=== PATIENT | male | born 1935 | race Caucasian/White ===

== ENCOUNTER → 2017-04-04 | Day surgery (SDC) | payer MEDICARE ==
[~2017-04-04] MED LIST: ASPI81 PO; ATROPINE SULFATE 1% OPHT SOLN 5 ML BTL ONE; COZA100T PO; DEXAMETHASONE SOD PHOS 4 MG/ML VIAL ONE; EPINEPHrine HCL (1:1000) 1 MG/ML VIAL ONE; FISH100020 PO; HYALURONIDASE/LIDOCAINE/BUPIVACAINE 11 ML SYR TL ONE; LACTATED RINGER'S 1000 ML INJ 1,000 ML ONE; NEOMYCIN/POLYMYXIN/DEXAMETHASONE OPTH OINT 3.5 GM TUBE ONE; PHENYLEPHRINE HCL 2.5 % OPTH SOLN 15 ML BTL ONE; PROPOFOL 200 MG/20 ML AMP IV ONE; SODIUM CHLORIDE 0.9% INJ 10 ML ONE; TAMS0.4C67 PO; TETRACAINE 0.5% OPTH SOLN 15 ML BTL ONE; TROPICAMIDE 1% OPHT SOLN 15 ML BTL ONE; VITA500T49 PO; ceFAZolin INJ 1,000 MG VIAL ONE
--- NOTE | 2017-04-10 08:05 | TN ---
cc: EMMANUEL KAMARA MD DATE OF 1935 DATE OF SURGERY 04/04/2017 PREOPERATIVE DIAGNOSIS Retinal detachment right eye. POSTOPERATIVE DIAGNOSIS Retinal detachment right eye. PROCEDURE Pars plana vitrectomy, endolaser, gas-fluid exchange, right eye. ANESTHESIA MAC. SURGEON MD Stephani COMPLICATIONS None. PROCEDURE After informed consent was obtained, the patient was given retrobulbar anesthesia. He was then brought to the operating room and prepared and draped in the usual sterile fashion. A wire lid speculum was placed in the patient's right eye. 23-gauge vitrectomy cannulas were then placed in the lower temporal, superotemporal and supranasal quadrants 3 mm posterior to the corneoscleral limbus. An infusion cannula was placed lower temporally. Core vitrectomy was then performed. There was already a posterior vitreous detachment. A vitrectomy was carried out as far as possible to the vitreous base taking care to remove vitreous from around the retinal break. A complete air-fluid exchange was then performed through a posterior retinotomy. The retina flattened nicely. Endolaser was used to treat the retinal breaks as well as the vitreous base for 360 degrees and the retinotomy. The air was then exchanged for a 16% C3F8. The three vitrectomy cannulas were then removed. Subconjunctival injections of dexamethasone and Ancef were placed. An Atropine drop, Maxitrol and a patch and shield were then applied. The patient tolerated the procedure well. There were no complications. He will [facility]. Emmanuel Kamara MD TAB/SSB /6:47 PM /7:52 AM
== END | disposition home or self-care (01) ==
LOC: ESDC 11:58
PROVIDERS: ATTEND Ophthalmology Retina Specialist
DX: H33.011 Retinal detachment with single break, right eye (principal)
CPT/HCPCS: 00145; 67108; J0171; J0690; J1100; J7120

== ENCOUNTER 2017-06-12 21:18 | Observation (INO) | payer MEDICARE ==
[~2017-06-12] VITALS: Ht 172.7 cm; Wt 84.0 kg
[~2017-06-12 21:18] MED LIST changes: -ATROPINE SULFATE 1% OPHT SOLN 5 ML BTL ONE; -DEXAMETHASONE SOD PHOS 4 MG/ML VIAL ONE; -EPINEPHrine HCL (1:1000) 1 MG/ML VIAL ONE; -HYALURONIDASE/LIDOCAINE/BUPIVACAINE 11 ML SYR TL ONE; -LACTATED RINGER'S 1000 ML INJ 1,000 ML ONE; -NEOMYCIN/POLYMYXIN/DEXAMETHASONE OPTH OINT 3.5 GM TUBE ONE; -PHENYLEPHRINE HCL 2.5 % OPTH SOLN 15 ML BTL ONE; -PROPOFOL 200 MG/20 ML AMP IV ONE; -SODIUM CHLORIDE 0.9% INJ 10 ML ONE; -TETRACAINE 0.5% OPTH SOLN 15 ML BTL ONE; -TROPICAMIDE 1% OPHT SOLN 15 ML BTL ONE; -ceFAZolin INJ 1,000 MG VIAL ONE
[2017-06-12 21:20] VITALS: BP 132/67; PULSE 78; RESP 18
[2017-06-12 21:30] VITALS: BP 130/65; PULSE 74; RESP 20; TEMP 98; O2SAT 97
[2017-06-12] MEDS ORDERED: TAMS5CAP PO (21:36)
[2017-06-12] MEDS ORDERED: LISI2.5T3 PO (21:36)
[2017-06-12] MEDS ORDERED: ASPI-516 CHEW (21:36)
[2017-06-12] MEDS ORDERED: DAILTAB38 PO (21:36)
[2017-06-12] MEDS ORDERED: ASPIRIN 81 MG CHEW TAB CHEW ONE (21:45)
--- NOTE | 2017-06-12 21:52 | PD ---
HPI Chief Complaint: Chest Pain Time Seen by Provider: 21:40 Travel History International Travel<30 days: No Contact w/Intl Traveler<30days: No History of Present Illness HPI 81-year-old male presents the emergency department while visiting his in the adjacent pod, patient developed left-sided chest pain which he described as a 9 out of 10. He states it lasted approximately 10 minutes. He also had some lightheaded sensation with it. He is now here in [facility] pod, laying comfortably in the examining room stating no chest pain currently. Patient has no previous history of cardiac issues in the past. Patient does have a history of prostate cancer with left-sided nephrectomy in the distant past. He states recent mild cold symptoms which have improved last couple of days. Patient has no abdominal pain or urinary symptoms. He has no shortness of breath currently. He is allergic to penicillin. PFSH Past Medical History Cancer: Yes (PROSTATE CA, SEED IMPLANTS WITH RADIATION) Cardiovascular Problems: No (TIA,) Diabetes: No Diminished Hearing: Yes Hepatitis: No Hiatal Hernia: No Medical other: Yes (TIA) Thyroid Disease: No Tetanus Vaccination: < 5 Years Influenza Vaccination: No Past Surgical History Genitourinary Surgery: Yes (PROSTATE SEED IMPLANTS) Pacemaker: No Other Surgery: Yes (L nephrectomy) Social History Alcohol Use: No Tobacco Use: No Substance Use: No Allergies-Medications (Allergen,Severity, Reaction): Coded Allergies: penicillin G (Unverified Allergy, Unknown, SWELLING, BREATHING PROBLEMS, ) Reported Meds & Prescriptions Reported Meds & Active Scripts Active Reported Daily Multiple Vitamin (Multiple Vitamin) 1 Tab Tab 1 Tab PO DAILY Aspirin 81 Mg Chew 81 Mg CHEW DAILY Flomax (Tamsulosin HCl) 0.4 Mg Cap 0.4 Mg PO HS Lisinopril 2.5 Mg Tab 2.5 Mg PO DAILY Review of Systems Except as stated in HPI: all other systems reviewed are Neg General / Constitutional: No: Fever Eyes: No: Visual changes HENT: No: Headaches Cardiovascular: Positive: Chest Pain or Discomfort, No: Dyspnea on exertion Respiratory: No: Shortness of Breath Gastrointestinal: No: Abdominal Pain Genitourinary: No: Dysuria Musculoskeletal: No: Pain Skin: No Rash Neurologic: No: Weakness Psychiatric: No: Depression Endocrine: No: Polydipsia Hematologic/Lymphatic: No: Easy Bruising Physical Exam Narrative GENERAL: Patient appears in no acute distress. He does admit he's been quite stressed due to his 's recent illness. SKIN: Warm and dry. HEAD: Atraumatic. Normocephalic. EYES: Pupils equal and round. No scleral icterus. No injection or drainage. ENT: No nasal bleeding or discharge. Mucous membranes pink and moist. Pharynx is clear. Airway is patent. NECK: Trachea midline. No JVD. Supple and nontender. CARDIOVASCULAR: Regular rate and rhythm. No murmurs gallops or rubs. RESPIRATORY: No accessory muscle use. Clear to auscultation. Breath sounds equal bilaterally. GASTROINTESTINAL: Abdomen soft, non-tender, nondistended. Hepatic and splenic margins not palpable. MUSCULOSKELETAL: Extremities without clubbing, cyanosis, or edema. No obvious deformities. NEUROLOGICAL: Awake and alert. No obvious cranial nerve deficits. Motor grossly within normal limits. Five out of 5 muscle strength in the arms and legs. Normal speech. PSYCHIATRIC: Appropriate mood and affect; insight and judgment normal. Data Data Last Documented VS Vital Signs Date Time Temp Pulse Resp B/P (MAP) Pulse Ox O2 Delivery O2 Flow Rate FiO2 06/12/17 21:36 Room Air 06/12/17 21:36 98 06/12/17 21:30 98.0 74 20 Orders Orders Electrocardiogram (06/12/17 21:33) Complete Blood Count With Diff (06/12/17 21:33) Basic Metabolic Panel (Bmp) (06/12/17 21:33) Ckmb (Isoenzyme) Profile (06/12/17 21:33) Troponin I (06/12/17 21:33) Chest, Single Ap (06/12/17 21:33) Ecg Monitoring (06/12/17 21:33) Oxygen Administration (06/12/17 21:33) Oximetry (06/12/17 21:33) Aspirin Chew (Aspirin Chew) (06/12/17 21:45) CKMB (06/12/17 21:35) CKMB% (06/12/17 21:35) Labs Laboratory Tests Test 06/12/17 21:35 White Blood Count 8.6 TH/MM3 Red Blood Count 5.01 MIL/MM3 Hemoglobin 14.8 GM/DL Hematocrit 42.7 % Mean Corpuscular Volume 85.3 FL Mean Corpuscular Hemoglobin 29.6 PG Mean Corpuscular Hemoglobin Concent 34.7 % Red Cell Distribution Width 14.6 % Platelet Count 319 TH/MM3 Mean Platelet Volume 7.5 FL Neutrophils (%) (Auto) 73.7 % Lymphocytes (%) (Auto) 14.1 % Monocytes (%) (Auto) 6.8 % Eosinophils (%) (Auto) 4.7 % Basophils (%) (Auto) 0.7 % Neutrophils # (Auto) 6.4 TH/MM3 Lymphocytes # (Auto) 1.2 TH/MM3 Monocytes # (Auto) 0.6 TH/MM3 Eosinophils # (Auto) 0.4 TH/MM3 Basophils # (Auto) 0.1 TH/MM3 CBC Comment DIFF FINAL Differential Comment Blood Urea Nitrogen 19 MG/DL Creatinine 2.16 MG/DL Random Glucose 96 MG/DL Calcium Level 9.8 MG/DL Sodium Level 139 MEQ/L Potassium Level 4.2 MEQ/L Chloride Level 105 MEQ/L Carbon Dioxide Level 27.1 MEQ/L Anion Gap 7 MEQ/L Estimat Glomerular Filtration Rate 29 ML/MIN Total Creatine Kinase 209 U/L Troponin I LESS THAN 0.02 NG/ML MDM Medical Decision Making Medical Screen Exam Complete: Yes Emergency Medical Condition: Yes Medical Record Reviewed: Yes Differential Diagnosis Chest pain. Cardiac syndrome. Anxiety. Narrative Course Labs ordered including CBC, CMP, cardiac panel. EKG is performed showing sinus rhythm without significant ST-T changes. Chest x-ray is ordered as well. Patient is given aspirin 324 mg by mouth. Patient is pain-free at this time. Chest x-ray is negative for acute process. CBC is unremarkable. CMP unremarkable except for creatinine of 2.16 with a BUN of 19 and a GFR of 29 , but looking back this appears to be his baseline due to his previous nephrectomy. First troponin is less than 0.02. Patient is admitted to the chest pain center. Diagnosis Primary Impression: Chest pain Qualified Codes: R07.9 - Chest pain, unspecified Admitting Information Admitting Physician Requests: Observation Condition: Stable Mariusz Amezquita Jun 12, 2017 21:52
--- NOTE | 2017-06-12 22:12 | RADRPT ---
EXAM DATE/TIME: 06/12/2017 21:46 [facility] COMPARISON: No previous studies available for comparison. INDICATIONS : Cough, chest pain. MEDICAL HISTORY : None. SURGICAL HISTORY : None. ENCOUNTER: Initial ACUITY: 1 day PAIN SCORE: 0/10 LOCATION: Bilateral chest FINDINGS: A single view of the chest demonstrates the lungs to be symmetrically aerated without evidence of mas s, infiltrate or effusion. The cardiomediastinal contours are unremarkable. Osseous structures are intact. CONCLUSION: No acute disease. Antonio Brooke MD on June 12, 2017 at 22:10 Board Certified Radiologist. This report was verified electronically.
[2017-06-12 22:29] LABS: AUTOMATED NEUTROPHIL # 6.4 TH/MM3 (1.8-7.7); BASOPHIL # 0.1 TH/MM3 (0-0.2); BASOPHIL % 0.7 % (0.0-2.0); EOSINOPHIL # 0.4 TH/MM3 (0-0.4); EOSINOPHIL % 4.7 % (0.0-4.0); HEMATOCRIT 42.7 % (39.0-51.0); HEMO FLAGS DIFF FINAL; LYMPH % 14.1 % (9.0-44.0); LYMPHOCYTE # 1.2 TH/MM3 (1.0-4.8); MEAN CELL VOLUME 85.3 FL (80.0-100.0); MEAN CORPUSCULAR HEMOGLOBIN 29.6 PG (27.0-34.0); MEAN CORPUSCULAR HGB CONC 34.7 % (32.0-36.0); MONO % 6.8 % (0.0-8.0); NEUT % 73.7 % (16.0-70.0); PLATELET COUNT 319 TH/MM3 (150-450); RED BLOOD COUNT 5.01 MIL/MM3 (4.50-5.90); RED CELL DISTRIBUTION WIDTH 14.6 % (11.6-17.2); WHITE BLOOD COUNT 8.6 TH/MM3 (4.0-11.0)
[2017-06-12 23:04] LABS: ANION GAP 7 MEQ/L (5-15); BICARBONATE 27.1 MEQ/L (21.0-32.0); BLOOD UREA NITROGEN 19 MG/DL (7-18); CHLORIDE 105 MEQ/L (98-107); GLOMERULAR FILTRATION RATE 29 ML/MIN (>89); POTASSIUM 4.2 MEQ/L (3.5-5.1); SODIUM (NA) 139 MEQ/L (136-145)
[2017-06-12 23:07] LABS: CREATINE KINASE 209 U/L (39-308)
[2017-06-12] MEDS ORDERED: NITROGLYCERIN 0.4 MG SL 25 TABS/BTL SL PRN (23:15)
[2017-06-12] MEDS ORDERED: SODIUM CHLORIDE 0.9% FLUSH 10 ML FLUSH IV FLUSH PRN (23:15)
[2017-06-12 23:19] LABS: CKMB 3.3 NG/ML (0.5-3.6)
[2017-06-12 23:50] VITALS: BP 128/62; PULSE 70; RESP 16; TEMP 98.2; O2SAT 97
[2017-06-13 01:03] LABS: CREATINE KINASE 187 U/L (39-308)
[2017-06-13 03:57] LABS: CREATINE KINASE 171 U/L (39-308)
[2017-06-13 04:10] LABS: CKMB 2.6 NG/ML (0.5-3.6)
[2017-06-13 04:28] VITALS: BP 108/58; PULSE 66; RESP 18; TEMP 98.1; O2SAT 96
[2017-06-13 07:38] VITALS: PULSE 67
[2017-06-13 08:02] VITALS: PULSE 59
--- NOTE | 2017-06-13 08:07 | HHI.HP ---
HPI Primary Care Physician Sherman Garcia M.D. Chief Complaint Left posterior back and left sided rib pain History of Present Illness 81 year old male with no significant medical history presents to the ER for further evaluation of left midback pain. Onset yesterday evening while visiting his in the hospital. Location left posterior midback radiating under left rib cage. Characterized as sharp. Duration 3-4 seconds. No associated symptoms of nausea, vomiting, dyspnea, or diaphoreses. No known precipitating or relieving factors. Total episodes x3, after third episode experienced numbness of left fingertips, at that time decided to come to ER for further evaluation. Denies similar pain in the past. No particular movement make pain better, worse , or reproduce pain. Currently pain free. Review of Systems General: No fatigue,weakness, fever, chills, recent illness, or change in appetite. Endorses he is currently under more stress than normal. Sole caregiver of his diagnosed with Parkinson's disease. She had been having home hospice for some time now, but the last couple of weeks her health has declined. Last evening she was placed to inpatient hospice. HEENT: No LUTHER, no vision changes, no nasal congestion or drainage, no dysphasia CV: As stated above, currently no left sided rib pain. Denies any chest pain/ discomfort. RESP: No SOB, cough, wheeze. Remote URI x2 weeks ago, treated with antibiotics and reports resolved completely. GI: No nausea, vomiting, bowel changes, diarrhea, constipation, pain, distention , melena, or blood in the stool. No change in appetite, no unintentional weight gain or weight loss : No dysuria, urgency, frequency. Endorses history of kidney stones which led to left nephrectomy 5 years ago. Known chronic kidney insufficiency, follows with nephrology. EXT: No lower leg edema, no paraesthesias MS: No discomfort or change in ROM NEURO: No change in memory, dizziness, difficulty with balance, LOC, motor/ sensory deficits PSYCH: Current situational stress, tearful at different times during interview. SKIN: No rashes, no concerning lesions Past Family Social History Allergies: Coded Allergies: penicillin G (Unverified Allergy, Unknown, SWELLING, BREATHING PROBLEMS, ) Past Medical History Prostate cancer (20 years ago), TIA (6-8 years ago), kidney stones Past Surgical History Left nephrectomy (reports nephrectomy due to kidney stones, states kidney " " after kidney stones, 2007) right eye retinal detachment surgery Reported Medications Reported Meds & Active Scripts Active Reported Daily Multiple Vitamin (Multiple Vitamin) 1 Tab Tab 1 Tab PO DAILY Aspirin 81 Mg Chew 81 Mg CHEW DAILY Flomax (Tamsulosin HCl) 0.4 Mg Cap 0.4 Mg PO HS Lisinopril 2.5 Mg Tab 2.5 Mg PO DAILY Active Ordered Medications Current Medications Medications (Trade) Dose Ordered Sig/Chrissy Route Start Time Stop Time Status Last Admin (NS Flush) 2 ml UNSCH PRN IV FLUSH 06/12/17 23:15 (NS Flush) 2 ml BID IV FLUSH 06/13/17 09:00 (Nitrostat Sl) 0.4 mg Q5M PRN SL 06/12/17 23:15 Family History Noncontributory for early onset cardiovascular disease. Social History No known CAD, diabetes, hyperlipidemia, or hypertension. Former smoker, quitting 50 years ago. Rare glass of wine. . Caregiver for diagnosed with Parkinson's. Endorses trying to remain physically active, doing pushups and other strengthening exercise daily. Past cardiac testing Nuclear stress testing reportedly unremarkable one year ago. 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 Physical Exam Vital Signs Vital Signs Date Time Temp Pulse Resp B/P (MAP) Pulse Ox O2 Delivery O2 Flow Rate FiO2 06/13/17 07:38 67 06/13/17 04:28 98.1 66 18 108/58 (75) 96 06/12/17 23:50 98.2 70 16 128/62 (84) 97 06/12/17 21:36 Room Air 06/12/17 21:36 98 Room Air 06/12/17 21:30 98.0 74 20 130/65 (86) 97 Room Air 06/12/17 21:20 78 18 132/67 (88) Physical Exam GENERAL: Alert WN, WD, NAD, pleasant, elderly male HEAD: NC, AT NECK: Supple, no masses, trachea midline CV: RRR, without murmur, rub, gallop, no JVD, S1-S2 no S3-S4. No carotid bruits. Chest wall pain not reproduced with palpation. RESP: Clear lungs throughout bilateral, no crackles, wheeze, rhonchi, symmetrical chest rise, nonlabored, able to speak in full sentences ABD: Soft, NT, ND, no masses, positive bowel tones BACK: No CVAT, no scoliosis, back pain not reproduced with palpation. EXT: Pulses +24, no dependent edema MS: Normal tone 4 extremities, no obvious deformities, full range of motion NEURO: CN II through CN XII grossly intact, motor strength 5/5, gait WNL PSYCH: A+O 3, pleasant affect, appropriate speech, mood, insight and judgment. Tearful at times when speaking about . Last evening was placed in hospice care. SKIN: Normal turgor, normal texture, no lesions, no rashes, brisk cap refill, even hair distribution Laboratory Laboratory Tests Test 06/12/17 21:35 06/13/17 00:15 06/13/17 03:15 White Blood Count 8.6 Red Blood Count 5.01 Hemoglobin 14.8 Hematocrit 42.7 Mean Corpuscular Volume 85.3 Mean Corpuscular Hemoglobin 29.6 Mean Corpuscular Hemoglobin Concent 34.7 Red Cell Distribution Width 14.6 Platelet Count 319 Mean Platelet Volume 7.5 Neutrophils (%) (Auto) 73.7 Lymphocytes (%) (Auto) 14.1 Monocytes (%) (Auto) 6.8 Eosinophils (%) (Auto) 4.7 Basophils (%) (Auto) 0.7 Neutrophils # (Auto) 6.4 Lymphocytes # (Auto) 1.2 Monocytes # (Auto) 0.6 Eosinophils # (Auto) 0.4 Basophils # (Auto) 0.1 CBC Comment DIFF FINAL Differential Comment Blood Urea Nitrogen 19 Creatinine 2.16 Random Glucose 96 Calcium Level 9.8 Sodium Level 139 Potassium Level 4.2 Chloride Level 105 Carbon Dioxide Level 27.1 Anion Gap 7 Estimat Glomerular Filtration Rate 29 Total Creatine Kinase 209 187 171 Creatine Kinase MB 3.3 3.0 2.6 Troponin I LESS THAN 0.02 LESS THAN 0.02 LESS THAN 0.02 Result Diagram: 06/12/17213406/12/172134 Imaging Last Impressions Chest X-Ray 06/12/172132 Signed Impressions: Service Date/Time: Monday, June 12, 2017 21:46 - CONCLUSION: No acute disease. Antonio Brooke MD Course EKG NSR, LAD, no st t segment changes Capluiz VTE Risk Assessment Capluiz VTE Risk Assessment: Mod/High Risk (score >= 2) Caprini Risk Assessment Model Point Value = 1 Point Value = 2 Point Value = 3 Point Value = 5 Age 41-60 Minor surgery BMI > 25 kg/m2 Swollen legs Varicose veins or History of unexplained or recurrent spontaneous Oral contraceptives or hormone replacement Sepsis (< 1 month) Serious lung disease, including pneumonia (< 1 month) Abnormal pulmonary function Acute myocardial infarction Congestive heart failure (< 1 month) History of inflammatory bowel disease Medical patient at bed rest Age 61-74 Arthroscopic surgery Major open surgery (> 45 min) Laparoscopic surgery (> 45 min) Malignancy Confined to bed (> 72 hours) Immobilizing plaster cast Central venous access Age >= 75 History of VTE Family history of VTE Factor V Leiden Prothrombin [id number] Lupus anticoagulant Anticardiolipin antibodies Elevated serum homocysteine Heparin-induced thrombocytopenia Other congenital or acquired thrombophilia Stroke (< 1 month) Elective arthroplasty Hip, pelvis, or leg fracture Acute spinal cord injury (< 1 month) Prophylaxis Regimen Total Risk Factor Score Risk Level Prophylaxis Regimen 0-1 Low Early ambulation 2 Moderate Order ONE of the following: *Sequential Compression Device (SCD) *Heparin 5000 units SQ BID 3-4 Higher Order ONE of the following medications: *Heparin 5000 units SQ TID *Enoxaparin/Lovenox 40 mg SQ daily (WT < 150 kg, CrCl > 30 mL/min) *Enoxaparin/Lovenox 30 mg SQ daily (WT < 150 kg, CrCl > 10-29 mL/min) *Enoxaparin/Lovenox 30 mg SQ BID (WT < 150 kg, CrCl > 30 mL/min) AND/OR *Sequential Compression Device (SCD) 5 or more Highest Order ONE of the following medications: *Heparin 5000 units SQ TID (Preferred with Epidurals) *Enoxaparin/Lovenox 40 mg SQ daily (WT < 150 kg, CrCl > 30 mL/min) *Enoxaparin/Lovenox 30 mg SQ daily (WT < 150 kg, CrCl > 10-29 mL/min) *Enoxaparin/Lovenox 30 mg SQ BID (WT < 150 kg, CrCl > 30 mL/min) AND *Sequential Compression Device (SCD) Assessment and Plan Assessment and Plan #1 Atypical chest pain-admitted to chest pain center. Ruled out with 3 sets of EKG, cardiac enzymes, and monitored overnight. Seen and evaluated by Dr. Bryan Carreno. Proceed with exercise stress testing. prefers not to have a chemical stress test and states he is able to walk on treadmill safety. If stress testing unremarkable, plans to discharge home later this morning. Patient is agreeable to plan of care. Reassurance provided discomfort highly atypical for cardiac pain and more likely from musculoskeletal discomfort, possibly from current situational stress around his 's illness and being placed in hospice. Upon discharge instructed to notify his PCP of admission to hospital. #2 Chronic kidney insufficiency-follow up with nephrology as previously instructed Agatha Mcfarland Jun 13, 2017 08:07
[2017-06-13] MEDS ORDERED: NITROGLYCERIN 0.4 MG SL 25 TABS/BTL SL PRN (08:15)
[2017-06-13] MEDS ORDERED: ONDANSETRON HCL 4 MG/2 ML VIAL IV PUSH PRN (08:15)
[2017-06-13] MEDS ORDERED: ACETAMINOPHEN 500 MG CPLT PO PRN (08:15)
[2017-06-13 08:37] VITALS: BP 136/65; PULSE 67; RESP 16; TEMP 97.5; O2SAT 97
[2017-06-13] MEDS ORDERED: ASPIRIN 325 MG TAB PO SCH (09:00)
[2017-06-13] MEDS ORDERED: SODIUM CHLORIDE 0.9% FLUSH 10 ML FLUSH IV FLUSH SCH (09:00)
--- NOTE | 2017-06-13 10:13 | HHI.DCPOC ---
Discharge Care Plan Diagnosis: (1) Situational stress (2) Chronic kidney disease (3) Musculoskeletal back pain Goals to Promote Your Health * To prevent worsening of your condition and complications * To maintain your health at the optimal level Directions to Meet Your Goals Take your medications as prescribed Follow your dietary instruction Follow activity as directed Keep your appointments as scheduled Take your immunizations and boosters as scheduled If your symptoms worsen call your PCP, if no PCP go to Urgent Care Center or Emergency Room Smoking is Dangerous to Your Health. Avoid second hand smoke Call the 24-hour hour crisis hotline for domestic abuse at Agatha Mcfarland Jun 13, 2017 10:13
--- NOTE | 2017-06-15 08:55 | EKG ---
Date Performed: 06/13/2017 Time Performed: 03:59:51 PTAGE: 81 years EKG: Sinus rhythm LEFT ANTERIOR FASCICULAR BLOCK ABNORMAL ECG PREVIOUS TRACING : 06/13/2017 00.54 Since previous tracing, no significant change noted DOCTOR: Bryan Carreno Interpretating Date/Time 06/15/2017 08:54:37
--- NOTE | 2017-06-15 08:55 | EKG ---
Date Performed: 06/13/2017 Time Performed: 00:54:18 PTAGE: 81 years EKG: Sinus rhythm WITH OCCASIONAL VENTRICULAR PREMATURE COMPLEXES LEFT ANTERIOR FASCICULAR BLOCK ABNORMAL ECG PREVIOUS TRACING : 06/12/2017 21.27 Since previous tracing, no significant change noted DOCTOR: Bryan Carreno Interpretating Date/Time 06/15/2017 08:55:17
--- NOTE | 2017-06-15 08:58 | EKG ---
Date Performed: 06/12/2017 Time Performed: 21:27:58 PTAGE: 81 years EKG: Sinus rhythm LEFT ANTERIOR FASCICULAR BLOCK ABNORMAL ECG PREVIOUS TRACING : 10/24/2011 10.38 Since previous tracing, no significant change noted DOCTOR: Bryan Carreno Interpretating Date/Time 06/15/2017 08:56:15
--- NOTE | 2017-06-15 09:01 | TR ---
Date Performed: 06/13/2017 Time Performed: 09:20:48 DOCTOR: Bryan Carreno DRUG LIST: CLINICAL HISTORY: CHEST PAIN REASON FOR TEST: REASON FOR ENDING: OBSERVATION: CONCLUSION: Arnaldo protocol completed. Stopped sec to exceeding target heart rate and leg fatigue . Maximum OQ=696 Target HR Achieved=91.0% Maximum XY=028/62 Total Exercise Time=2:01. No reprod chest discomfort. No ectopy. No st t segment changes. Fair exercise tolerance. Normal bp response. Recover y quick and unremarkable. COMMENTS: Patient exercised using the Arnaldo protocol. No electrocardiographic changes were seen to suggest ischemia. Hemodynamic response to exercise was normal. No significant arrhythmia was prese nt.
== END 2017-06-13 12:27 | disposition home or self-care (01) ==
LOC: NEPC 21:18 → NEDA 23:11 → NEPFCDU 23:40
PROVIDERS: ADMIT Internal Medicine Interventional Cardiology; ATTEND Internal Medicine Interventional Cardiology
DX: R07.89 Other chest pain (principal); N18.9 Chronic kidney disease, unspecified; R07.81 Pleurodynia; I44.4 Left anterior fascicular block; R94.31 Abnormal electrocardiogram [ECG] [EKG]; R05 Cough; R42 Dizziness and giddiness; G20 Parkinson's disease; H91.90 Unspecified hearing loss, unspecified ear; Z85.46 Personal history of malignant neoplasm of prostate; Z86.73 Personal history of transient ischemic attack (TIA), and cerebral infarction without residual deficits; Z87.891 Personal history of nicotine dependence; Z79.899 Other long term (current) drug therapy; Z79.82 Long term (current) use of aspirin; Z90.5 Acquired absence of kidney
CPT/HCPCS: 71010; 80048; 82550; 82552; 84484; 85025; 93005; 93017; 99285; G0378

== ENCOUNTER → 2017-11-21 | Day surgery (SDC) | payer MEDICARE ==
[~2017-11-21] MED LIST changes: +ASPI-516 CHEW; -ASPI81 PO; +ATROPINE SULFATE 1% OPHT SOLN 2 ML BTL ONE; -COZA100T PO; +DAILTAB38 PO; +DEXAMETHASONE SOD PHOS 4 MG/ML VIAL ONE; +EPINEPHrine HCL (1:1000) 1 MG/ML VIAL ONE; -FISH100020 PO; +FLURBIPROFEN 0.03% OPHT SOLN 2.5 ML BTL ONE; +HYALURONIDASE/LIDOCAINE/BUPIVACAINE 5 ML SYR ONE; +LACTATED RINGER'S 1000 ML INJ 1,000 ML ONE; +LISI2.5T3 PO; +NEOMYCIN/POLYMYXIN/DEXAMETHASONE OPTH OINT 3.5 GM TUBE ONE; +ONDANSETRON HCL 4 MG/2 ML VIAL IV PUSH ONE; +PHENYLEPHRINE HCL 2.5 % OPTH SOLN 15 ML BTL ONE; +PROPOFOL 100 MG/10 ML INJ IV ONE; -TAMS0.4C67 PO; +TAMS5CAP PO; +TETRACAINE 0.5% OPTH SOLN 4 ML BTL ONE; +TROPICAMIDE 1% OPHT SOLN 15 ML BTL ONE; -VITA500T49 PO; +ceFAZolin INJ 1,000 MG VIAL ONE
--- NOTE | 2017-11-27 14:42 | MP ---
cc: Emmanuel Styles MD DATE OF OPERATION: 11/21/2017 PREOPERATIVE DIAGNOSIS: Previous retinal detachment, right eye. POSTOPERATIVE DIAGNOSIS: Previous retinal detachment, right eye. PROCEDURES: Pars plana vitrectomy, silicone oil removal, right eye. ANESTHESIA: MAC. SURGEON: Emmanuel Styles MD COMPLICATIONS: None. PROCEDURE IN DETAIL: After informed consent was obtained, the patient brought to the operating room, placed, under brief anesthesia of propofol, prepped and draped in the usual sterile fashion. A wire eyelid speculum was placed in the patients right eye. 23-gauge vitrectomy cannulas were then placed, one lower temporal, supratemporal and supranasal quadrants 3 mm posterior to the corneal scleral limbus. Infusion cannula was placed lower temporally. The patient had a previous vitrectomy with some of the residual vitreous, at the vitreous space was excised using the vitreous cutter. Posteriorly either the internal limiting membrane or an epiretinal membrane was stained with ICG dye over the surface of the macula. This was then carefully peeled from around the macula hole. Careful indirect ophthalmoscopy with scleral depression was then performed. No peripheral breaks were noted. A complete air-fluid was then performed. The silicone oil gas then used to fill the vitreous cavity. The three vitrectomy cannulas were then removed. Each site was closed with interrupted 7-0 Vicryl suture. Subconjunctival injections of Dexamethasone and Ancef were placed. Atropine drops. Maxitrol ointment and patch and shield were then applied. The patient tolerated the procedure well. There were no complications. He will followup tomorrow in our [place] office. Emmanuel Styles MD TAB/DL , 02:33 PM , 02:41 PM
== END | disposition home or self-care (01) ==
LOC: ESDC 11:11
PROVIDERS: ATTEND Ophthalmology Retina Specialist
DX: H33.8 Other retinal detachments (principal); T85.398A Other mechanical complication of other ocular prosthetic devices, implants and grafts, initial encounter
CPT/HCPCS: 00145; 67036; J0171; J0690; J1100; J2405; J3010; J7120